=== PATIENT | female | born 1955 | race African-American/Black ===

== ENCOUNTER 2018-05-01 08:28 | Day surgery (SDC) | payer OTHER ==
[~2018-05-01] VITALS: Ht 162.6 cm; Wt 60.0 kg
[~2018-05-01 08:28] MED LIST: ASPIRIN81 M2 PO; ATORVASTATIN CA10 MG PO; LISINOPRIL10 MG PO; NADOLOL80 MG PO; NAPROSYN500 MG PO; PANTOPRAZOLE SO40 MG PO
== END 2018-05-01 12:00 | disposition home or self-care (01) ==
LOC: CATH 08:28
DX: T82.858A Stenosis of other vascular prosthetic devices, implants and grafts, initial encounter (principal); Y83.2 Surgical operation with anastomosis, bypass or graft as the cause of abnormal reaction of the patient, or of later complication, without mention of misadventure at the time of the procedure; I12.0 Hypertensive chronic kidney disease with stage 5 chronic kidney disease or end stage renal disease; N18.6 End stage renal disease; Z99.2 Dependence on renal dialysis; E78.00 Pure hypercholesterolemia, unspecified; Z85.89 Personal history of malignant neoplasm of other organs and systems; F17.200 Nicotine dependence, unspecified, uncomplicated
CPT/HCPCS: 87641; C1725; C1769; C1894; J1644; J2250; J3010